=== PATIENT | male | born 2000 | race Caucasian/White ===

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

== ENCOUNTER 2020-07-09 20:57 | Emergency (ER) | payer SELFPAY ==
[~2020-07-09] VITALS: Ht 180.3 cm; Wt 59.0 kg
[~2020-07-09 20:57] MED LIST changes: +FLUOXETINE HCL20 MG PO; +HYDROCODONE-ACE15 M3 PO
== END 2020-07-10 00:53 | disposition home or self-care (01) ==
LOC: ED 20:57
DX: R45.851 Suicidal ideations (principal); F90.9 Attention-deficit hyperactivity disorder, unspecified type
CPT/HCPCS: 99284